=== PATIENT | male | born 2000 | race Caucasian/White ===

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

== ENCOUNTER 2022-04-22 18:42 | Emergency (ER) | payer BC | END 2022-04-22 21:00 | disposition home or self-care (01) | LOC: MW.ED 18:42 | DX: S56.911A Strain of unspecified muscles, fascia and tendons at forearm level, right arm, initial encounter (principal) | CPT/HCPCS: 29125; 99282; 99283 ==

== ENCOUNTER 2022-07-11 05:07 | Emergency (ER) | payer SELFPAY | END 2022-07-11 07:00 | disposition home or self-care (01) | LOC: MW.ED 05:07 | DX: S60.511A Abrasion of right hand, initial encounter (principal); Y04.0XXA Assault by unarmed brawl or fight, initial encounter | CPT/HCPCS: 73130-26-RT; 73130-RT; 99282; 99283 ==